=== PATIENT | female | born 1955 | race Caucasian/White ===

== ENCOUNTER 2016-10-04 21:56 | Emergency (ER) | payer OTHER ==
[~2016-10-04] VITALS: Ht 167.6 cm; Wt 90.7 kg
[2016-10-05] MEDS ORDERED: MAGNESIUM CITRATE SOLUTION 300 ML BTL PO ONE (00:45)
[2016-10-05] MEDS ORDERED: LACTULOSE 20Gm/30ML SOLN PO ONE (00:45)
[2016-10-05 01:03] LABS: Basophils # (auto) 0.1 uL; Basophils % (auto) 1.3 % (0.0-2.0); DEFINITIVE SEE PRINTOUT; Eosinophils # (auto) 0.3 uL; Eosinophils % (auto) 4.2 % (0.0-7.0); Hematocrit 39.8 % (36.0-46.0); Hemoglobin 12.6 g/dL (12.2-16.2); Lymphocytes # (auto) 1.5 uL; Mean Corpuscular Hemoglobin 26.1 pg (28.0-32.0); Mean Corpuscular Hgb Conc. 31.6 g/dL (32.0-36.0); Mean Corpuscular Volume 82.4 fL (80.0-100.0); Mean Platelet Volume 8.7 fL (7.4-10.4); Monocytes # (auto) 0.9 uL; Monocytes % (auto) 11.9 % (0.0-12.0); Neutrophils # (auto) 4.6 uL; Neutrophils % (auto) 62.6 % (37.0-80.0); Platelet Count (auto) 365 10^3/uL (140-450); Red Cell Distribution Width 18.3 % (11.6-16.0); White Blood Cell 7.4 10^3/uL (4.4-10.8)
[2016-10-05 01:22] LABS: Albumin 2.6 g/dL (3.4-5.0); BUN/Creatinine Ratio 22.8; Calcium 8.5 mg/dL (8.5-10.1); Potassium 3.4 mmol/L (3.5-5.1)
[2016-10-05 01:25] LABS: Bilirubin, Total 0.7 mg/dL (0.2-1.0); Total Protein 7.7 g/dL (6.4-8.2)
[2016-10-05 02:03] LABS: Urine Bilirubin Negative (Negative); Urine Blood Negative /uL (Negative); Urine Color Yellow (Yellow); Urine Glucose Normal (Normal); Urine Ketone Negative (Negative); Urine Nitrite Negative (Negative); Urine RBC 1 /hpf (0 - 4); Urine Squamous Epithelial Cell FEW /hpf (<5); Urine Urobilinogen Normal (Negative); Urine pH 5.5 (5.0-8.0)
[2016-10-05] MEDS ORDERED: FLEET ENEMA(ADULT) 135 ML PR ONE (03:10)
[2016-10-05 16:01] VITALS: BP 138/80
== END 2016-10-05 17:01 | disposition home or self-care (01) ==
LOC: ER 21:59
DX: K59.00 Constipation, unspecified (principal); N39.0 Urinary tract infection, site not specified; E11.9 Type 2 diabetes mellitus without complications; I25.2 Old myocardial infarction; Z88.8 Allergy status to other drugs, medicaments and biological substances; Z91.041 Radiographic dye allergy status
CPT/HCPCS: 36415; 80053; 81001; 85025